=== PATIENT | female | born 1990 ===

== ENCOUNTER 2020-12-05 14:48 | Emergency (ER) | payer MEDICAID, OTHER ==
[~2020-12-05] VITALS: Ht 162.6 cm; Wt 68.9 kg
[2020-12-05 14:52] VITALS: BP 111/68
== END 2020-12-05 15:10 | disposition left against medical advice (07) ==
LOC: ER 14:48
DX: N93.8 Other specified abnormal uterine and vaginal bleeding (principal); Z53.21 Procedure and treatment not carried out due to patient leaving prior to being seen by health care provider